=== PATIENT | male | born 1970 | race Caucasian/White ===

== ENCOUNTER 2020-10-06 19:09 | Emergency (ER) | payer OTHER ==
[2020-10-06] MEDS ORDERED: TYLENOL EXTRA STRENGTH 500 MG PO ONE (19:38)
[2020-10-06] MEDS ORDERED: TYLENOL EXTRA STRENGTH 500 MG ONE (19:38)
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
[2020-10-06 21:11] VITALS: BP 126/70; PULSE 70
[2020-10-06 22:46] VITALS: O2SAT 100
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
== END 2020-10-06 21:10 ==
LOC: ED 19:09
DX: S16.1XXA Strain of muscle, fascia and tendon at neck level, initial encounter (principal); S09.90XA Unspecified injury of head, initial encounter; V89.2XXA Person injured in unspecified motor-vehicle accident, traffic, initial encounter; Y93.89 Activity, other specified; Y92.89 Other specified places as the place of occurrence of the external cause; M54.2 Cervicalgia
CPT/HCPCS: 70450; 72125; 99283; A9270-GY